=== PATIENT | female | born 2005 | race Two or more races ===

== ENCOUNTER 2024-01-14 01:49 | Emergency (ER) | payer OTHER ==
[2024-01-14 02:18] LABS: APPEARANCE,URINE CLOUDY (Clear); BILIRUBIN,URINE NEGATIVE (Negative); COLOR,URINE YELLOW (Yellow); GLUCOSE,URINE NEGATIVE (Negative); KETONES,URINE NEGATIVE (Negative); LEUKOCYTE ESTERASE,URINE 1+ (Negative); NITRITE,URINE NEGATIVE (Negative); OCCULT BLOOD,URINE 3+ (Negative); PROTEIN,URINE 2+ (Negative); UROBILINOGEN,URINE 0.2 (0.2-1.0)
[2024-01-14 03:03] LABS: RBC,URINE 75-100 /hpf (0-5); WBC,URINE 20-30 /hpf (0-5)
[2024-01-14 03:04] LABS: BACTERIA,URINE FEW /hpf (FEW); EPITHELIAL CELLS,URINE 0-5 /hpf (0-5); MUCUS,URINE NOT SEEN /hpf (FEW); WBC CLUMPS,URINE MODERATE /hpf (NOT SEEN)
[2024-01-14] MEDS ORDERED: Cephalexin 500 MG Cap PO ONE (03:15)
== END 2024-01-14 03:29 | disposition home or self-care (01) ==
LOC: JD.ED 01:49
DX: R30.0 Dysuria (principal); R35.0 Frequency of micturition; N39.0 Urinary tract infection, site not specified
CPT/HCPCS: 81001; 87086; 99283; 99284